=== PATIENT | female | born 1965 | race Caucasian/White ===

== ENCOUNTER 2018-08-01 12:51 | Emergency (ER) | payer BC ==
[~2018-08-01] VITALS: Ht 160 cm; Wt 90.0 kg
[~2018-08-01 12:51] MED LIST: ONDA4TAB12 PO
[2018-08-01 12:54] VITALS: BP 141/80
[2018-08-01] MEDS ORDERED: HYDROmorphone 2mg tablet PO PRN (14:00)
[2018-08-01] MEDS ORDERED: ondansetron 4mg rapidly disintigrating tab PO ONE (14:00)
[2018-08-01] MEDS ORDERED: HYDR-4353 PO (14:04)
== END 2018-08-01 14:33 | disposition home or self-care (01) ==
LOC: ER 12:51
DX: M25.531 Pain in right wrist (principal); X58.XXXA Exposure to other specified factors, initial encounter; Y93.89 Activity, other specified; Y92.89 Other specified places as the place of occurrence of the external cause; Y99.8 Other external cause status
CPT/HCPCS: 29125; 73130; 99284

== ENCOUNTER 2018-08-04 16:03 | Outpatient (CLI) | payer BC ==
[~2018-08-04 16:03] MED LIST changes: +HYDR-4353 PO
[2018-08-04 17:19] LABS: BASOPHILS % (AUTO) 0.5 % (0-1); EOSINOPHILS % (AUTO) 0.7 % (0-6); HEMATOCRIT 36.1 % (35.0-45.0); HEMOGLOBIN 11.9 g/dl (12.0-16.0); LYMPHOCYTES # (AUTO) 1.9 X10'3 (1.1-4.8); LYMPHOCYTES % (AUTO) 29.5 % (21-51); MEAN CORPUSCULAR HEMOGLOBIN 25.5 PG (27.0-31.0); MEAN CORPUSCULAR HGB CONC 32.8 % (33.0-36.5); MEAN CORPUSCULAR VOLUME 77.7 FL (78-98); MEAN PLATELET VOLUME 7.6 FL (7.4-10.4); MONOCYTES # (AUTO) 0.5 X10'3 (0-0.9); MONOCYTES % (AUTO) 7.9 % (2-12); NEUTROPHILS # (AUTO) 3.9 X10'3 (1.8-7.7); NEUTROPHILS % (AUTO) 61.4 % (42-75); PLATELET COUNT 317 X10'3 (140-440); RED BLOOD COUNT 4.65 X10'6 (4.20-5.60); RED CELL DISTRIBUTION WIDTH 14.9 % (11.5-14.5); WHITE BLOOD COUNT 6.3 X10'3 (4.5-11.0)
[2018-08-04 17:31] LABS: HEMOGLOBIN A1C 6.1 % (4.5-6.2)
[2018-08-04 17:45] LABS: ALANINE AMINOTRANSFERASE 41 U/L (12-78); ALBUMIN 3.1 G/DL (3.4-5.0); ALBUMIN/GLOBULIN RATIO 0.8 (1.1-1.5); ALKALINE PHOSPHATASE 83 IU/L (46-116); ANION GAP 10 (8-16); ASPARTATE AMINO TRANSFERASE 25 U/L (10-37); BILIRUBIN,TOTAL 0.1 MG/DL (0.1-1.0); BLOOD UREA NITROGEN 13 MG/DL (7-18); BUN/CREATININE RATIO 14.9 (6.6-38.0); CALCIUM 8.9 MG/DL (8.5-10.1); CHLORIDE 105 MMOL/L (99-107); CREATININE 0.87 MG/DL (0.40-0.90); GLUCOSE 104 MG/DL (70-104); POTASSIUM 3.9 MMOL/L (3.5-5.1); SODIUM 141 MMOL/L (135-145); TOTAL CARBON DIOXIDE 26.1 MMOL/L (24-32); eGFR 69 ML/MIN
[2018-08-06 08:31] LABS: THYROID PEROXIDASE AB 12 IU/mL (0-34)
== END 2018-08-04 23:59 | disposition home or self-care (01) ==
LOC: VAS 16:03
PROVIDERS: ATTEND Obstetrics & Gynecology
DX: G56.03 Carpal tunnel syndrome, bilateral upper limbs (principal); R60.0 Localized edema; M79.641 Pain in right hand; E05.00 Thyrotoxicosis with diffuse goiter without thyrotoxic crisis or storm; Z90.710 Acquired absence of both cervix and uterus
CPT/HCPCS: 36415; 80053; 83036; 84439; 84443; 85025; 86376; 93971

== ENCOUNTER 2018-09-30 13:29 | Emergency (ER) | payer BC ==
[~2018-09-30] VITALS: Ht 160 cm; Wt 90.9 kg
[~2018-09-30 13:29] MED LIST changes: -HYDR-4353 PO
[2018-09-30 13:37] VITALS: BP_SYST 133
[2018-09-30] MEDS ORDERED: BENZ-16 PO (15:05)
[2018-09-30] MEDS ORDERED: AZIT250T PO (15:05)
== END 2018-09-30 15:16 | disposition home or self-care (01) ==
LOC: ER 13:30
DX: M94.0 Chondrocostal junction syndrome [Tietze] (principal); J40 Bronchitis, not specified as acute or chronic; E66.9 Obesity, unspecified
CPT/HCPCS: 71046; 99283

== ENCOUNTER 2020-07-17 11:21 | Emergency (ER) | payer BC ==
[~2020-07-17] VITALS: Ht 160 cm; Wt 100.0 kg
[~2020-07-17 11:21] MED LIST changes: +AZIT250T PO; +BENZ-16 PO
[2020-07-17 11:51] VITALS: BP 216/106
== END 2020-07-17 12:45 | disposition home or self-care (01) ==
LOC: ER 11:22
DX: M25.511 Pain in right shoulder (principal); M25.531 Pain in right wrist; W18.39XA Other fall on same level, initial encounter; Y93.89 Activity, other specified; Y92.89 Other specified places as the place of occurrence of the external cause; Y99.8 Other external cause status
CPT/HCPCS: 73030; 73090; 73110; 99284